=== PATIENT | female | born 1950 | race Caucasian/White ===

== ENCOUNTER 2017-07-23 18:12 | Emergency (ER) | payer SELFPAY ==
[~2017-07-23] VITALS: Ht 162.6 cm; Wt 104.4 kg
[2017-07-23 18:16] VITALS: BP 160/70
== END 2017-07-23 19:35 | disposition home or self-care (01) ==
LOC: ED 18:45
DX: I10 Essential (primary) hypertension (principal); E11.9 Type 2 diabetes mellitus without complications; Z76.0 Encounter for issue of repeat prescription
CPT/HCPCS: 99283